=== PATIENT | male | born 1985 | race Caucasian/White ===

== ENCOUNTER 2020-11-19 12:44 | Emergency (ER) | payer OTHER, SELFPAY ==
--- NOTE | ~2020-11-19 | XR_ITS ---
XR ankle RT min 3V DATE: 11/19/2020 13:12 INDICATION: Inversion injury. Lateral swelling, pain TECHNIQUE: 4 views COMPARISON: None FINDINGS: There is lateral soft tissue swelling. No fracture or dislocation of the ankle or disruption of the ankle mortise. No periosteal reaction or bone destruction. IMPRESSION: Lateral soft tissue swelling Reviewed, dictated and finalized at location A.
[2020-11-19 12:51] VITALS: BP 150/88; PULSE 85; RESP 20; TEMP 36.6; O2SAT 100
--- NOTE | 2020-11-19 13:16 | ED.GENADULT ---
HPI - General Adult General Chief complaint: Extremity Injury, Lower Stated complaint: right ankle injury Time Seen by Provider: 11/19/20 13:17 Source: patient Mode of arrival: ambulatory Limitations: no limitations History of Present Illness HPI narrative: 35-year-old male patient presents to the [facility] with complaints of right ankle pain. Patient states that he rolled his ankle this morning. Patient states he noticed that the swelling was getting worse so decided to come in and get it checked out. Patient rates his pain 4 out of 10 at this time denies taking thing for pain but states he has been elevating it and icing it. Related Data Allergies Allergy/AdvReac Type Severity Reaction Status Date / Time No Known Allergies Allergy Verified 11/19/20 13:15 Review of Systems Review of Systems: Narrative: CONSTITUTIONAL: Denies fever, chills, or sweats. EYES: Denies visual changes, redness, or discharge. ENT: Denies rhinorrhea, congestion, sore throat, or otalgia. CARDIOVASCULAR: Denies chest pain, palpitations, or edema. RESPIRATORY: Denies cough or dyspnea. GASTROINTESTINAL: Denies abdominal pain, nausea, vomiting, or diarrhea. GENITOURINARY: Denies dysuria or hematuria. SKIN: Denies rash or itching. MUSCULOSKELETAL: Denies back pain, joint pain, or myalgia. Positive right ankle pain NEUROLOGIC: Denies headache, numbness, or weakness. PSYCHIATRIC: Denies anxiety or depression. [facility] Past Medical History Medical History (Updated 11/19/20 @ 13:24 by ANDRES Hicks) No significant past medical history Comments At the time of my signature I agree with nursing past medical history, surgical, social, and family history. There is no relevant family history pertinent to the presenting complaint. Exam Narrative: Exam Narrative: GENERAL: Well-appearing, well-nourished, and in no acute distress. HEAD: Normocephalic, atraumatic. EYES: PERRLA and EOMI. ENT: Nares clear, no rhinorrhea or epistaxis. Mucous membranes moist. NECK: Supple. No lymphadenopathy CHEST: Clear to auscultation. No respiratory distress. HEART: Regular rate and rhythm. No murmur heard. Normal peripheral pulses. ABDOMEN: Soft, nontender, nondistended, normal active bowel sounds. EXTREMITIES: Patient is able to bear weight and ambulate without pain. The R ankle is without obvious asymmetry or deformity when compared to the L ankle. Patient can flex/extend, invert/beverly. No obvious surface trauma, ecchymosis, there is significant soft tissue swelling noted over the lateral malleolus area. No body tenderness to palpation over the medial or lateral malleolus. Anterior talofibular ligament, posterior talofibular ligament, calcaneofibular ligament nontender and without swelling. No tenderness or deformity of the midfoot or over the proximal fifth metatarsal. Good DP and posterior tibial pulses and sensation to light touch normal. Talar tilt test is negative for ligament laxity to valgus or vargus stress. Negative anterior draw. Peroneal nerve is intact with strong eversion and plantar flexion. SKIN: Warm, dry, no rash. NEURO: No focal deficits. Alert and oriented x3. Course Vital Signs Vital signs: Vital Signs Temperature 36.6 C 11/19/20 12:51 Pulse Rate 85 11/19/20 12:51 Respiratory Rate 20 11/19/20 12:51 Blood Pressure 150/88 H 11/19/20 12:51 Pulse Oximetry 100 11/19/20 12:51 Temperature 36.6 C 11/19/20 12:51 Pulse Rate 85 11/19/20 12:51 Respiratory Rate 20 11/19/20 12:51 Blood Pressure 150/88 H 11/19/20 12:51 Pulse Oximetry 100 11/19/20 12:51 Vital signs reviewed The patient has been informed that they may have pre-hypertension or Hypertension based on a BP reading in the department. I recommend that the patient call the primary care provider listed on their discharge instructions or a physician of their choice this week to arrange follow up for further evaluation of possible pre-hypertension or Hypertension Medical De
== END 2020-11-19 13:30 | disposition home or self-care (01) ==
PROVIDERS: Emergency Provider Nurse Practitioner Family
DX: S93.401A Sprain of unspecified ligament of right ankle, initial encounter (principal); X50.9XXA Other and unspecified overexertion or strenuous movements or postures, initial encounter; X50.0XXA Overexertion from strenuous movement or load, initial encounter
CPT/HCPCS: 73610; 99203; G0463